=== PATIENT | female | born 1980 | race Caucasian/White ===

== ENCOUNTER 2016-05-08 06:18 | Day surgery (SDC) | payer OTHER ==
[2016-05-05 10:08] LABS: APPEARANCE,URINE SLIGHTLY-CLOUDY; BILIRUBIN,URINE NEGATIVE (NEGATIVE); GLUCOSE, URINE NEGATIVE (NEGATIVE); KETONES,URINE NEGATIVE (NEGATIVE); LEUKOCYTE ESTERASE,URINE NEGATIVE (NEGATIVE); NITRITE,URINE NEGATIVE (NEGATIVE); PROTEIN,URINE NEGATIVE (NEGATIVE); URINE SPECIFIC GRAVITY 1.023; UROBILINOGEN,URINE NEGATIVE mg/dL (<2.0)
[2016-05-05 10:18] LABS: HEMATOCRIT 39.7 % (36.0-47.0); HEMOGLOBIN 13.1 g/dL (12.0-15.5); HGB HCT DIFFERENCE -0.4; MEAN CORPUSCULAR HEMOGLOBIN 28.7 pg (27.0-33.4); MEAN CORPUSCULAR HGB CONC 33.1 g/dL (32.0-36.0); MEAN CORPUSCULAR VOLUME 87 fl (80-97); RED BLOOD COUNT 4.57 10^6/uL (3.72-5.28); RED CELL DISTRIBUTION WIDTH 12.4 % (11.5-14.0); WHITE BLOOD COUNT 4.5 10^3/uL (4.0-10.5)
[~2016-05-08 06:18] MED LIST: LACTATED RINGERS 1000 ML IV PRN; LIDOCAINE 0.5% INJ-PF (5 MG/ML) 50 ML SDV SUBCUT PRN
[2016-05-08] MEDS ORDERED: FENTANYL CITRATE INJ/PF 100 MCG/2 ML AMPUL ONE (08:06)
[2016-05-08] MEDS ORDERED: MIDAZOLAM 2 MG/2 ML INJ ONE (08:07)
[2016-05-08] MEDS ORDERED: DEXMEDETOMIDINE INJ 80 MCG/20 ML VIAL IV ONE (08:07)
[2016-05-08] MEDS ORDERED: PROPOFOL INJ 200 MG/20 ML VIAL IV ONE (08:07)
[2016-05-08] MEDS ORDERED: DIPHENHYDRAMINE HCL 50 MG/ML VIAL IV PRN (08:31)
[2016-05-08] MEDS ORDERED: MEPERIDINE HCL/PF INJ 25 MG/1 ML DISP.SYRIN IV PRN (08:31)
[2016-05-08] MEDS ORDERED: PROMETHAZINE HCL INJ 25 MG/1 ML VIAL IV PRN ×2 (08:31)
[2016-05-08] MEDS ORDERED: MORPHINE SULFATE 10 MG/ML INJ IV PRN (08:31)
[2016-05-08] MEDS ORDERED: OXYCODONE-ACETAMINOPHEN 5-325 MG TABLET PO PRN ×4 (08:31→11:03)
[2016-05-08] MEDS ORDERED: FENTANYL CITRATE INJ/PF 100 MCG/2 ML AMPUL IV PRN ×3 (08:31)
[2016-05-08] MEDS ORDERED: ACETAMINOPHEN 100 ML IV ONE (09:44)
[2016-05-08] MEDS ORDERED: MORPHINE SULFATE 10 MG/ML INJ IM PRN (11:02)
[2016-05-08] MEDS ORDERED: IBUPROFEN 800 MG TABLET PO PRN (11:03)
[2016-05-08] MEDS ORDERED: RINGERS SOLUTION,LACTATED 1,000 ML IV PRN (11:04)
[2016-05-08 11:55] VITALS: BP 129/89
[2016-05-08] MEDS ORDERED: ONDANSETRON HCL INJ/PF 4 MG/2 ML SDV ONE (12:24)
[2016-05-08] MEDS ORDERED: SUCCINYLCHOLINE CHLORIDE INJ 200 MG/10 ML VIAL ONE (12:24)
[2016-05-08] MEDS ORDERED: VECURONIUM BROMIDE INJ 10 MG VIAL IV ONE (12:24)
[2016-05-08] MEDS ORDERED: NEOSTIGMINE METHYLSULFATE 10 MG/10 ML VIAL ONE (12:24)
[2016-05-08] MEDS ORDERED: LIDOCAINE 2% INJ-PF (20 MG/ML) 10 ML AMPUL ONE (12:24)
[2016-05-08] MEDS ORDERED: GLYCOPYRROLATE INJ 0.4 MG/2 ML VIAL ONE (12:24)
--- NOTE | 2016-06-18 18:08 | OPERATIVE REPORT E ---
Operative Report NAME: AMANDA MARSHALL : 1980 AGE: 36Y DATE OF SURGERY: 05/08/2016 ROOM: PREOPERATIVE DIAGNOSIS: Patient desiring permanent sterilization. POSTOPERATIVE DIAGNOSIS: Patient desiring permanent sterilization. OPERATION: Laparoscopic bilateral tubal ligation using fulguration. SURGEON: Bernardo Moreau D.O. ELECTRIC WIRER: None. ANESTHESIA: General endotracheal anesthesia. COMPLICATIONS: None. PATHOLOGY: None. ESTIMATED BLOOD LOSS: Less than 10 mL FINDINGS: 1. Large omental adhesion to the anterior abdominal wall. 2. Normal appearing pelvic anatomy. PROCEDURE: The patient was taken to the operating room, where she was placed in dorsal supine position on the operating table. She was then prepped and draped in normal sterile fashion. A 10 mm incision was made at the base of the patient's umbilicus and a 10 mm direct Optiview scope was passed through the incision and into the peritoneal cavity. Once inside the peritoneal cavity, CO2 gas was turned on, and opening pressure was noted to be less than 5. The patient's abdomen was then allowed to fill with CO2 gas. A survey of the anatomy revealed a large omental adhesion to the anterior abdominal wall. I was able to get around this adhesion to see into the pelvic area. The pelvic anatomy was within normal limits. The uterus, fallopian tubes, and ovaries all appeared normal. Using the Kleppinger device, a 3 cm segment of each fallopian tube was fulgurated with excellent hemostasis. Following this, all ports and gas were removed from the patient's abdomen. The fascial defect was closed using 0 Vicryl in a [id number] suture, and the skin incision was closed with a 4-0 Vicryl in a subcuticular fashion. At this point in time, the procedure was terminated. All sponge, lap, and needle counts were correct x2. The patient tolerated the procedure well. The patient was taken to the recovery room in stable condition. DICTATING PHYSICIAN: Bernardo Moreau DO [id number] PHY#: [id number] ID: [id number] JOB#: [id number] ACCT: [id number] cc:Bernardo Moreau D.O. >
== END 2016-05-08 11:45 | disposition home or self-care (01) ==
LOC: OROUT 06:18
PROVIDERS: ATTEND Obstetrics & Gynecology
PROC: 0U574ZZ Destruction of Bilateral Fallopian Tubes, Percutaneous Endoscopic Approach (ICD-10-PCS; principal; 2016-05-08 08:15)
DX: Z30.2 Encounter for sterilization (principal)
CPT/HCPCS: 36415; 85027; 81005; 81025; 58670; J2250; J3010; J3490 ×2; J0330; J2405; J2704; J0131; 851